=== PATIENT | female | born 1960 | race Caucasian/White ===

== ENCOUNTER 2017-04-10 10:37 | Emergency (ER) | payer OTHER ==
[~2017-04-10] VITALS: Ht 165.1 cm; Wt 73.0 kg
[2017-04-10 11:02] VITALS: BP 147/67; PULSE 78; RESP 16; TEMP 98.1; O2SAT 96
[2017-04-10] MEDS ORDERED: ASPI-516 CHEW (12:36)
[2017-04-10] MEDS ORDERED: TRAZ1TAB14 PO (12:36)
[2017-04-10] MEDS ORDERED: ATOR40TA16 PO (12:36)
[2017-04-10] MEDS ORDERED: MEDR4PAK PO (12:56)
[2017-04-10] MEDS ORDERED: DICL50TA PO (12:56)
--- NOTE | 2017-04-10 12:57 | PD ---
HPI Chief Complaint: Musculoskeletal Complaint Time Seen by Provider: 12:43 Travel History International Travel<30 days: No Contact w/Intl Traveler<30days: No Traveled to known affect area: No History of Present Illness HPI 57-year-old female presents to the emergency department for evaluation of left low back pain that radiates down to the left hip and down the left leg. She states this started 1 month ago. Patient states the pain is worse with movement , ambulation. She saw her primary care physician approximately 2 weeks ago and was given an injection of steroid and prescribed Flexeril. She states the steroids to help her temporarily. However, the pain is now worsening. She states the Flexeril are not helping her pain at all. Patient denies any fevers. No loss of bowel or bladder control. No saddle anesthesias. Moderate severity. PFSH Past Medical History Cancer: Yes (BREAST CA) High Cholesterol: Yes Medical other: Yes (PE) Past Surgical History Cholecystectomy: Yes Other Surgery: Yes (MASTECTOMY, RECONSTRUCTION) Social History Alcohol Use: No Tobacco Use: No Substance Use: No Allergies-Medications (Allergen,Severity, Reaction): Coded Allergies: Penicillins (Verified Allergy, Unknown, 04/10/17) Sulfa (Sulfonamide Antibiotics) (Verified Allergy, Unknown, 04/10/17) Reported Meds & Prescriptions Reported Meds & Active Scripts Active Reported Aspirin 81 Mg Chew 81 Mg CHEW DAILY Trazodone (Trazodone HCl) 150 Mg Tablet 150 Mg PO HS Atorvastatin (Atorvastatin Calcium) 40 Mg Tab 40 Mg PO HS Review of Systems Except as stated in HPI: all other systems reviewed are Neg Physical Exam Narrative GENERAL: Well-nourished, well-developed female patient, afebrile. SKIN: Focused skin assessment warm/dry. HEAD: Normocephalic. Atraumatic. EYES: No scleral icterus. No injection or drainage. NECK: Supple, trachea midline. No JVD or lymphadenopathy. CARDIOVASCULAR: Regular rate and rhythm without murmurs, gallops, or rubs. Bilateral radial and pedal pulses are 2+. RESPIRATORY: Breath sounds equal bilaterally. No accessory muscle use. Lungs sounds are clear to auscultation. GASTROINTESTINAL: Abdomen soft, non-tender, nondistended. MUSCULOSKELETAL: No cyanosis, or edema. Bilateral upper lower extremity strength 5/5. All extremities are neurovascularly intact. No calf pain or swelling noted. BACK: Nontender without obvious deformity. No CVA tenderness. No midline spinal tenderness. She has tenderness over left lumbar paraspinal musculature. Straight leg raise is negative bilaterally. Data Data Last Documented VS Vital Signs Date Time Temp Pulse Resp B/P (MAP) Pulse Ox O2 Delivery O2 Flow Rate FiO2 04/10/17 11:02 98.1 78 16 147/67 (93) 96 Orders Orders Dexamethasone Inj (Decadron Inj) (04/10/17 13:00) Ketorolac Inj (Toradol Inj) (04/10/17 13:00) Orphenadrine Inj (Norflex Inj) (04/10/17 13:00) [facility] Medical Decision Making Medical Screen Exam Complete: Yes Emergency Medical Condition: Yes Medical Record Reviewed: Yes Differential Diagnosis Sciatica versus herniated disc versus muscle strain versus muscle spasm Narrative Course 57-year-old female presents to the emergency department for evaluation of left lower back pain that radiates down the left leg for one month. Patient appears well on exam. Patient is given dexamethasone 8 mg IM, Toradol 60 mg IM, Norflex 60 mg IM. She'll be discharged with a prescription for Medrol Dosepak, diclofenac. She is continue Flexeril as needed. She is to follow-up with her primary care physician or return here for any acute worsening of symptoms. The patient was discharged in stable condition with instructions, including return instructions and follow up instructions. Diagnosis Primary Impression: Sciatica Qualified Codes: M54.32 - Sciatica, left side Referrals: Primary Care Physician call for appointment Patient Instructions: General Instructions, Sciatica (ED) Additional Instructions: Take diclofenac as directed as needed with food for pain. Do not take with other anti-inflammatories including ibuprofen and naproxen. Take Medrol Dosepak as directed. Start this tomorrow. Continue Flexeril as directed as needed. Heating pad on low for 20 minutes 4-5 times daily Follow-up with your primary care physician. Return to the emergency department for any acute worsening of symptoms. Med/Other Pt SpecificInfo: Prescription(s) given Scripts Diclofenac Potassium (Diclofenac Potassium) 50 Mg Tab 50 MG PO TID Y for PAIN SCALE 1 TO 10, #21 TAB 0 Refills Prov: Tessa Blankenship 04/10/17 Methylprednisolone Dosepak (Medrol Dosepak) 4 Mg Dspk 4 MG PO DIRECTED, #1 DSPK 0 Refills Per Pharmacist direction Prov: Tessa Blankenship 04/10/17 Disposition: 01 DISCHARGE HOME Condition: Stable Tessa Blankenship Apr 10, 2017 12:57
[2017-04-10] MEDS ORDERED: KETOROLAC TROMETHAMINE 60 MG/2 ML (IM) VIAL IM ONE (13:00)
[2017-04-10] MEDS ORDERED: ORPHENADRINE INJ 60 MG/2 ML AMP IM ONE (13:00)
[2017-04-10] MEDS ORDERED: DEXAMETHASONE SOD PHOS 4 MG/ML VIAL IM ONE (13:00)
== END 2017-04-10 13:30 | disposition home or self-care (01) ==
LOC: PHED 10:37 → PHEFT 13:30
DX: M54.32 Sciatica, left side (principal); E78.00 Pure hypercholesterolemia, unspecified; Z85.3 Personal history of malignant neoplasm of breast; Z88.2 Allergy status to sulfonamides; Z88.0 Allergy status to penicillin; Z79.82 Long term (current) use of aspirin
CPT/HCPCS: 96372; 99283; J1100; J1885; J2360